=== PATIENT | female | born 1950 | race Caucasian/White ===

== ENCOUNTER 2018-07-09 21:31 | Inpatient (IN) | payer MEDICARE, OTHER ==
[~2018-07-09] VITALS: Ht 170.2 cm; Wt 91.2 kg
[2018-07-09 20:49] VITALS: BP 130/70
--- NOTE | 2018-07-09 20:49 | NUR ---
GPS/RN-NOTES ADMITTED A [age] YEARS OLD FEMALE PATIENT FROM [facility] FOR REHAB MEDICINE. PATIENT ON 5150 FOR GD. PATIENT ARRIVED ON THIS UNIT AT 0320 VIA STRETCHER WITH 2 [employer] CREW. PER HOLD PATIENT CONSTANTLY PRESENTS HERSELF TO ER AND DIALED 911 MULTIPLE TIMES REQUESTING/ DEMANDING TO " WELCOME BABIES", PT APPEARS PARANOID OF OTHERS, DELAYED WITH RESPONSES AND UNABLE TO BE REDIRECTED. UPON FACE TO FACE ASSESSMENT PATIENT IS SITTING UP IN BED, AWAKE, HAS NO S/S OR COMPLAINTS OF PAIN AT THIS TIME. PATIENT WITH NO DISTRESS, NOR SOB AT THIS TIME. RESPIRATION IS EVEN AND UNLABORED. PATIENT IS A/O X 2-3, VERBALLY RESPONSIVE. PATIENT IS NOTED TO BE DISORGANIZED, WITH EPISODES OF BEING ANXIOUS, UNCOOPERATIVE, AND NEEDS REDIRECTION. PATIENT DENIES SUICIDE IDEATIONS AND HOMICIDAL IDEATIONS AT THIS TIME. PT IS AMBULATORY. PATIENT IS UNDER THE PSYCHIATRIC CARE OF DR. ARAYA AND THE MEDICAL CARE OF DR KHALIL. PATIENT BELONGINGS WERE INVENTORIED AND CHECKED FOR CONTRABAND. SOME OF PT'S BELONGINGS SEALED AND PLACED TO SAFE GIVEN TO THE NURSING PROTOTYPE SPECIAL BUILD. SKIN ASSESSMENT DONE. PATIENT EDUCATED ON THE USE OF THE CALL KRISHNAN, VERBALIZED UNDERSTANDING. ALL NEEDS ATTENDED AND MET. KEPT COMFORTABLE. SAFETY PRECAUTIONS OBSERVED. WILL CONTINUE TO MONITOR CLOSELY. Addendum: 07/15/18 at 0318 by JUAN CARLOS CORRIGAN RN PT'S AGE 73 YRS OLD Addendum: 07/15/18 at 0330 by JUAN CARLOS CORRIGAN RN PT ARRIVED ON THIS UNIT AT 2048 ON 07/09/18
[2018-07-09 20:50] VITALS: BP 130/70
[2018-07-09] MEDS ORDERED: LORAZEPAM 0.5 MG TABLET PO PRN (22:00)
[2018-07-09] MEDS ORDERED: MAGNESIUM HYDROXIDE 30 ML UDC PO PRN (22:00)
[2018-07-09] MEDS ORDERED: ZOLPIDEM TARTRATE 5 MG TABLET PO PRN (22:00)
[2018-07-09] MEDS ORDERED: MAG HYDROX/AL HYDROX/SIMETH 30 ML UDC PO PRN (22:00)
[2018-07-09] MEDS ORDERED: ACET1TAB23 PO (22:46)
[2018-07-10 08:00] VITALS: BP 120/72
[2018-07-10] MEDS: ACETAMINOPHEN 325 MG TABLET PO PRN (08:33)
--- NOTE | 2018-07-10 15:35 | NUR ---
DR. WALTERS MADE AWARE OF THE CONSULT.
[2018-07-10 16:00] VITALS: BP 128/75
[2018-07-10] MEDS: risperiDONE-M 0.5 MG TAB.RAPDIS PO SCH (17:00)
--- NOTE | 2018-07-10 17:13 | NUR ---
Pt. refused to take Risperdal M, offered 3x and explained on the importance and pt. still refusing. Pt. said "I don't need pills".
[2018-07-10 20:00] VITALS: BP 152/94
[2018-07-11 08:00] VITALS: BP 141/95
[2018-07-11] MEDS: risperiDONE-M 0.5 MG TAB.RAPDIS PO SCH ×2 (08:37→17:22)
--- NOTE | 2018-07-11 08:37 | NUR ---
RN NOTES PATIENT REFUSED SCHEDULED MEDICATION OFFERED X3 BUT STILL REFUSED PATIENT STATE "I AM GOING HOME I DO NOT NEEDED". V/S STABLE, NEEDS ATTENDED AND ANTICIPATED, CONTINUED MONITORING.
[2018-07-11 08:50] VITALS: BP 141/95
[2018-07-11] MEDS ORDERED: OLANZAPINE 10 MG VIAL IM ONE (11:30)
--- NOTE | 2018-07-11 11:50 | NUR ---
rn notes patient was argumentative, irritable, yelling, refused taken scheduled medication, ashley to follow direction. per dr Rodarte prescribed Zyprexa 5 mg/ml im x now.
--- NOTE | 2018-07-11 11:55 | NUR ---
rn notes' administered Zyprexa 5 mg/ml im right outer gluteal area, called help 2 MERCHANDISE DIRECTOR's, and information security analyst. per dr Rodarte order, continued monitoring.
[2018-07-11 16:00] VITALS: BP 120/91
[2018-07-11 20:00] VITALS: BP 129/89
[2018-07-12] MEDS: ACETAMINOPHEN 325 MG TABLET PO PRN ×2 (04:33→23:37)
[2018-07-12 08:00] VITALS: BP 133/95
[2018-07-12] MEDS: risperiDONE-M 0.5 MG TAB.RAPDIS PO SCH ×2 (10:08→16:25)
--- NOTE | 2018-07-12 12:10 | NUR ---
SW received a phone call from asad Gage with [facility] Mobile Crisis Team [phone] requesting discharge date to arrange transportation for pt.
--- NOTE | 2018-07-12 12:44 | NUR ---
INITIAL DISCHARGE PLAN: Patient wishes to be discharged home to [facility] [place], [address]. Pt stated she did not want any referrals to mental health services and stated she did not want family/friends to be contacted. CONNIE will help form a safe and proper discharge in collaboration with pt, MD, and [facility].
[2018-07-12 16:00] VITALS: BP 122/79
--- NOTE | 2018-07-12 18:42 | NUR ---
GPS/RN-NOTES PATIENT REFUSED TO GIVE URINE SPECIMEN THIS SHIFT. DESPITE EXPLANATION RISK AND BENEFITS. PATIENT KEEPS POSTPONING .WILL ENDORSE TO INCOMING NURSE FOR FOLLOW UP AND CONTINUITY OF CARE.
[2018-07-12 20:40] VITALS: BP 113/70
[2018-07-13 07:29] LABS: BASOPHILS % (AUTO) 0.9 % (0.0-2.0); EOSINOPHILS % (AUTO) 4.6 % (0.0-6.0); HEMATOCRIT 35 % (33-45); HEMOGLOBIN 11.6 g/dL (11.5-14.8); LYMPHOCYTES # (AUTO) 1.6 /CMM (0.8-4.8); MEAN CORPUSCULAR HGB CONC 33 g/dl (31.0-36.0); MEAN CORPUSCULAR VOLUME 98 fL (82-100); MONOCYTES # (AUTO) 0.3 /CMM (0.1-1.30); MONOCYTES % (AUTO) 8.9 % (2.0-12.0); NEUTROPHILS # (AUTO) 1.8 /CMM (1.8-8.9); NEUTROPHILS % (AUTO) 45.6 % (43.0-81.0); PLATELET COUNT (AUTO) 130 /CMM (150-450); RDW COEFFICIENT OF VARIATION 13.3 (11.5-15.0); RED BLOOD CELL COUNT(AUTO) 3.55 MIL/uL (4.0-5.2); WHITE BLOOD COUNT (AUTO) 3.9 K/uL (4.3-11.0)
[2018-07-13 07:46] LABS: CALCIUM, SERUM 9.5 mg/dL (8.5-10.1); CREATININE 0.8 mg/dL (0.6-1.3); PHOSPHORUS 3.3 mg/dL (2.5-4.9); POTASSIUM 3.9 mmol/L (3.5-5.1)
[2018-07-13 08:00] VITALS: BP 150/97
[2018-07-13] MEDS: risperiDONE-M 0.5 MG TAB.RAPDIS PO SCH ×2 (09:18→16:22)
[2018-07-13 16:00] VITALS: BP 107/61
[2018-07-13 18:03] LABS: APPEARANCE,URINE TURBID (CLEAR); BILIRUBIN,URINE NEGATIVE (NEGATIVE); BLOOD, URINE NEGATIVE Ery/uL (NEGATIVE); COLOR,URINE YELLOW (YELLOW); KETONES,URINE NEGATIVE (NEGATIVE); LEUKOCYTE ESTERASE ,URINE NEGATIVE (NEGATIVE); NITRITE, URINE NEGATIVE (NEGATIVE); PH,URINE 5.5 (5.0-8.0); PROTEIN,URINE NEGATIVE (NEGATIVE); UGLUCOSE NEGATIVE (NEGATIVE); UROBILINOGEN,URINE 0.2 EU/dL (0.2)
[2018-07-13 18:12] LABS: BACTERIA,URINE 4+ /HPF (None Seen); RBC,URINE 0-2 /HPF (0-2); SQUAMOUS EPITHELIAL CELL,UR Rare /HPF (None Seen); WBC,URINE 0-2 /HPF (0-3)
[2018-07-13 21:14] VITALS: BP 118/78
--- NOTE | 2018-07-14 05:55 | NUR ---
GPS-RN REPORTED TO STEWARD/STEWARDESS ROOM BOLDEN LAB RESULT OF WBC 3.9, URINE CULTURE STILL PENDING. PATIENT IS AFEBRILE, V/S STABLE. WITH NO NEW ORDER GIVEN AT THIS TIME.
[2018-07-14 08:00] VITALS: BP 115/61
[2018-07-14] MEDS: ACETAMINOPHEN 325 MG TABLET PO PRN (08:44)
[2018-07-14] MEDS: risperiDONE-M 0.5 MG TAB.RAPDIS PO SCH ×2 (08:44→18:07)
--- NOTE | 2018-07-14 10:08 | NUR ---
SW received a phone call from Trever Engel LCSW at [address] [phone] to schedule a follow up appointment for pt on 07/23/18 at 10:00am.
[2018-07-14 16:17] VITALS: BP 141/76
--- NOTE | 2018-07-14 18:15 | NUR ---
verbalized anxious to go home.
[2018-07-14 20:42] VITALS: BP 135/73
[2018-07-15] MEDS: risperiDONE-M 0.5 MG TAB.RAPDIS PO SCH (08:09)
--- NOTE | 2018-07-15 08:30 | NUR ---
DR. ARAYA GAVE AN ORDER TO D/C HOLD AND D/C TODAY AND TO FOLLOW UP WITH PSYCH AND MEDICAL DOCTORS. DR. MCKEON MADE AWARE OF THE DISCHARGE AND MEDICALLY CLEARED FOR DISCHARGE.
[2018-07-15 08:39] VITALS: BP 120/80
[2018-07-15 10:40] VITALS: BP 134/79
--- NOTE | 2018-07-15 11:10 | NUR ---
pt discharge today by Dr. Rodarte. Intenist agrees with discharge plan. pt is alert oriented x 3 and ambulatory. pt is calm and cooperative. no acute distress noted. denies s/i and/or h/i at time of discharge. vital sign stable. med prescription given. refused skin assessment. belongings returned. exitcare instruction completed. pt going home. [facility]. pt left in stable condition.
--- NOTE | 2018-07-15 13:48 | NUR ---
DISCHARGE NOTE: Pt was discharged at 11:00am via [facility] (provided by [facility]) home to [address] [place], [address]. Pt has no family to notify. Pts mood was anxious with congruent affect. Pt denied visual/auditory hallucinations and denied suicidal/homicidal ideations. Pt has a follow up appointment with Trever Engel LCSW at [facility] [address] [place], [place] [phone] on 07/23/18 @ 10:00am. Pt will also been seen by the [facility] psychiatrist once she meets for individual therapy. Pt will also schedule a follow up appointment with Highway Administrative Engineer: Dr. Lucas Yanez [address] [place] [address] [phone]. The multidisciplinary exit care form was done, printed, signed, and given to the patient.
== END 2018-07-15 11:05 | disposition home or self-care (01) | DRG 885 ==
LOC: GPS 21:31
PROVIDERS: ADMIT Psychiatry & Neurology Psychiatry
DX: F29 Unspecified psychosis not due to a substance or known physiological condition (principal); D68.59 Other primary thrombophilia; E66.01 Morbid (severe) obesity due to excess calories; Z68.31 Body mass index [BMI] 31.0-31.9, adult; E86.0 Dehydration; F22 Delusional disorders; F20.9 Schizophrenia, unspecified
CPT/HCPCS: 36415; 80048-TC; 80305; 81000-TC; 83735-TC; 84100-TC; 85025-TC; 87081-TC; 87086-TC; J3490

== ENCOUNTER 2018-10-31 14:11 | Inpatient (IN) | payer MEDICARE, OTHER ==
[~2018-10-31] VITALS: Ht 165.1 cm; Wt 110.2 kg
[~2018-10-31 14:11] MED LIST: ACET1TAB23 PO
[2018-10-31] MEDS ORDERED: MAG HYDROX/AL HYDROX/SIMETH 30 ML UDC PO PRN (17:00)
[2018-10-31] MEDS ORDERED: MAGNESIUM HYDROXIDE 30 ML UDC PO PRN (17:00)
[2018-10-31] MEDS ORDERED: TEMAZEPAM 7.5 MG CAPSULE PO PRN (17:00)
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
--- NOTE | 2018-10-31 18:50 | NUR ---
17:10 :PATIENT REFUSED SKIN ASSESSMENT .
[2018-10-31 20:00] VITALS: BP 121/83
[2018-11-01 07:26] LABS: ALBUMIN 3.4 g/dL (3.4-5.0); BILIRUBIN,TOTAL 0.5 mg/dL (0.2-1.0); CALCIUM, SERUM 9.8 mg/dL (8.5-10.1); CREATININE 0.7 mg/dL (0.6-1.3); POTASSIUM 3.7 mmol/L (3.5-5.1); TOTAL PROTEIN, SERUM 6.6 g/dL (6.4-8.2)
[2018-11-01 08:00] VITALS: BP 118/70
--- NOTE | 2018-11-01 08:35 | NUR ---
PATIENT REFUSED MRSA SWAB AT THIS TIME
[2018-11-01 16:00] VITALS: BP 100/67
[2018-11-01] MEDS: risperiDONE-M 0.5 MG TAB.RAPDIS PO SCH (21:00)
--- NOTE | 2018-11-01 22:00 | NUR ---
GPS RN NOTES, PATIENT REFUSED RISPERIDONE SCHEDULED MED, EDUCATED ABOUT RISKS AND BENEFITS TO TAKE MEDICATION X3, STILL REFUSED, WILL CONTINUE TO MONITOR CLOSELY.
[2018-11-02 08:00] VITALS: BP_SYST 118; BP_SYST 152; BP_DIAS 70; BP_DIAS 97
--- NOTE | 2018-11-02 08:01 | NUR ---
paula notes received pt in her bakari having breakfast; no issues noted at this time. will monitor
[2018-11-02] MEDS: risperiDONE-M 0.5 MG TAB.RAPDIS PO SCH ×2 (09:14→21:00)
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
[2018-11-02] MEDS: ACETAMINOPHEN 325 MG TABLET PO PRN (11:23)
[2018-11-02] MEDS: LORAZEPAM 0.5 MG TABLET PO PRN ×2 (11:23→12:36)
--- NOTE | 2018-11-02 12:24 | NUR ---
INITIAL DISCHARGE PLAN: Patient wishes to be discharged home to [address] [place] [address]. However, pts son Zhen [phone] wishes for pt to be discharged to a SNF in [place]. CONNIE will help form a safe and proper discharge in collaboration with .
--- NOTE | 2018-11-02 12:37 | NUR ---
rn notes pt changed her mind and refused to take her requested ativan and tylenol, refused meds returned to bin as witnessed by another RN.pt with episodes of screaming/agitation. requested for naproxen. everything relayed to Terry/LIFE INSURANCE SPECIALIST; pt seen and assessed
[2018-11-02] MEDS ORDERED: OLANZAPINE 10 MG VIAL IM STA (12:45)
--- NOTE | 2018-11-02 13:25 | NUR ---
rn notes pt noted with extreme agitation, with episodes of screaming and assaultive behavior.MD notified by lithopone charger Yasmin with orders given. meds explained to the pt and pt voluntarily agreed to received zyprexa 10 mg intramuscular as ordered with no physical hold needed.
[2018-11-02 16:00] VITALS: BP 125/68
[2018-11-02 19:51] LABS: APPEARANCE,URINE SL CLOUDY (CLEAR); BILIRUBIN,URINE NEGATIVE (NEGATIVE); BLOOD, URINE TRACE Ery/uL (NEGATIVE); COLOR,URINE YELLOW (YELLOW); KETONES,URINE NEGATIVE (NEGATIVE); LEUKOCYTE ESTERASE ,URINE TRACE (NEGATIVE); NITRITE, URINE NEGATIVE (NEGATIVE); PH,URINE 5.5 (5.0-8.0); PROTEIN,URINE NEGATIVE (NEGATIVE); UGLUCOSE NEGATIVE (NEGATIVE); UROBILINOGEN,URINE 0.2 EU/dL (0.2)
[2018-11-02 20:28] VITALS: BP 132/71
--- NOTE | 2018-11-02 21:15 | NUR ---
GPS RN NOTES, PATIENT REFUSED RISPERIDONE SCHEDULED MED, EXPLAINED RISKS AND BENEFITS TO TAKE MEDICATION X3, STILL REFUSED, WILL CONTINUE TO MONITOR .
--- NOTE | 2018-11-02 21:30 | NUR ---
GPS RN NOTES, PATIENT REFUSED RISPERIDONE 2 MG PO SCHEDULED MED, EXPLAINED RISKS AND BENEFITS TO TAKE MEDICATION X3, STILL REFUSED, WILL CONTINUE TO MONITOR .
[2018-11-02 21:36] LABS: BACTERIA,URINE Rare /HPF (None Seen); RBC,URINE 0-2 /HPF (0-2); SQUAMOUS EPITHELIAL CELL,UR Few /HPF (None Seen)
[2018-11-03 08:00] VITALS: BP 136/89
[2018-11-03] MEDS: risperiDONE-M 0.5 MG TAB.RAPDIS PO SCH ×2 (09:05→21:00)
[2018-11-03 16:00] VITALS: BP 138/90
[2018-11-03 20:32] VITALS: BP 137/94
--- NOTE | 2018-11-03 21:14 | NUR ---
GPS RN NOTES: PATIENT REFUSED RISPERDAL SCHEDULED MED, DESPITE EDUCATION OFFERED X3, STILL REFUSED, WILL CONTINUE TO MONITOR .
[2018-11-04 08:00] VITALS: BP 146/93
[2018-11-04] MEDS: risperiDONE-M 0.5 MG TAB.RAPDIS PO SCH ×2 (09:49→21:00)
[2018-11-04] MEDS: ACETAMINOPHEN 325 MG TABLET PO PRN ×2 (09:49→15:27)
--- NOTE | 2018-11-04 12:03 | NUR ---
0800 ASSUMED CARE OF PATIENT. PATIENT ALERT AND ORIENTED TIMES 2-3. PATIENT DENIES SI AND HI AT THIS TIME. PATIENT PACING HALLS. PATIENT DEMANDING CODEINE. PATIENT SIGNING NATIONAL ANTHEM LOUDLY REPEATEDLY. PATIENTS VITALS STABLE. PATIENT DENIES PAIN AT THIS TIME. 0900 PATIENT MEDICATION COMPLIANT WITH MUCH COERCING. PATIENT HAVING LOUD OUTBURST AT TIMES. 1015 PATIENT IN DAY ROOM PARTICIPATING IN GROUPS. NO BEHAVIORAL PROBLEMS NOTED. PATIENT GIVEN TYLENOL 650MG PO PER DR ORDERS FOR PAIN 5/10 GENERALIZED. 1130 PATIENT IN DAY ROOM INTERACTING WITH PEERS. PATIENT HAVING OCCASIONAL LOUD OUTBURST AND PACING HALLS. NO PRNS NEEDED. PATIENT DENIES PAIN AT THIS TIME. WILL CONTINUE TO MONITOR THROUGHOUT SHIFT.
[2018-11-04 16:04] VITALS: BP 111/59
--- NOTE | 2018-11-04 18:11 | NUR ---
1800 PATIENT IN DAY ROOM CALM AND COOPERATIVE AT THIS TIME. PATIENT PACING IN HALLS WITH LOUD OUTBURST ABOUT CODEINE AND SINGING LOUDLY NATIONAL ANTHEM THROUGHOUT SHIFT. PATIENT DENIES SI AND HI THROUGHOUT SHIFT. PATIENT VITALS STABLE. PATIENT GIVEN TYLENOL AT 1000 AND AT 1600 FOR PAIN GENERALIZED 5/10. PATIENT ASKED FOR TYLENOL AND THEN NEED ENCOURAGEMENT TO TAKE DEMANDS THAT SHE TAKES CODEINE BUT THEN TAKES TYLENOL. PATIENT EASILY REDIRECTED BUT CONFUSED. PATIENT PACING HALLS OFTEN THROUGHOUT SHIFT. WILL ENDORSE TO HS RN. VICENTE ISSA RN
[2018-11-04 20:00] VITALS: BP 128/99
--- NOTE | 2018-11-04 21:32 | NUR ---
GPS/JUNIOR GRAPHIC DESIGNER NOTES: PT. REFUSED HS MEDS. OFFERED 3X. EXPLAINED RISK AND BENEFITS. PT. STILL REFUSED.
[2018-11-05] MEDS: ACETAMINOPHEN 325 MG TABLET PO PRN (07:17)
[2018-11-05 08:00] VITALS: BP 115/40
[2018-11-05] MEDS: risperiDONE-M 0.5 MG TAB.RAPDIS PO SCH ×3 (08:25→21:00)
[2018-11-05] MEDS ORDERED: OLANZAPINE 10 MG VIAL IM ONE (09:00)
--- NOTE | 2018-11-05 09:01 | NUR ---
PT. IS HIGHLY AGITATED, AGGRESSIVE, SCREAMING AND YELLING, DELUSIONAL, THREATENING THE STAFFS AND PSYCHIATRIST . PT. WAS REDIRECTED TO CALM DOWN AND PROVIDED WITH COMFORT AND PT. NOT FOLLOWING REDIRECTION. DR. ARAYA IN THE UNIT AND ORDERED ZYPREXA AND 10 MG IM. Addendum: 11/05/18 at 1020 by ZOHREH GARCIA RN TO FOLLOW ING DIRECTION Addendum: 11/05/18 at 1024 by ZOHREH GARCIA RN NOT FOLLOWING DIRECTION
--- NOTE | 2018-11-05 13:26 | NUR ---
SW received a voicemail from pts sister Martha Esposito [phone], stating she is pts DPOA and also expressed concern regarding pts discharge home. SW returned the call and left a voicemail for callback and requested DPOA documentation.
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
--- NOTE | 2018-11-05 15:43 | NUR ---
GPS/RN PATIENT REFUSED LABS OFFERED X 3 WITH RISKS AND BENEFITS EXPLAINED STILL CONTINUE TO REFUSE. WILL NOTIFY .
[2018-11-05 16:00] VITALS: BP 129/93
--- NOTE | 2018-11-05 17:20 | NUR ---
GPS/RN PATIENT REFUSED DINNER. OFFERED X 3 STILL CONTINUE TO REFUSE, PER PATIENT, THE FOOD IS CONTAMINATED AND ONLY WANTS TO EAT ICE CREAM FOR DINNER.
[2018-11-05 20:00] VITALS: BP 129/76
--- NOTE | 2018-11-05 21:35 | NUR ---
GPS RN NOTE: PATIENT REFUSED RISPERDAL, EXPLAINED THE RISK AND BENEFITS X 3, PATIENT STILL REFUSED. WILL CONTINUE TO MONITOR [id number] FOR SAFETY
[2018-11-06 08:00] VITALS: BP 119/97
[2018-11-06] MEDS: risperiDONE-M 0.5 MG TAB.RAPDIS PO SCH ×2 (09:00→21:00)
--- NOTE | 2018-11-06 09:18 | NUR ---
GPS/RN-NOTES PATIENT REFUSED RISPERDAL 3MG P.O STATED" I TAKE ANY MEDICATIONS, I DON'T NEED IT". OFFERED X3 BUT PATIENT STILL REFUSED. CHARGE NURSE AWARE. Addendum: 11/06/18 at 1702 by BARBIE WLIL RN CORRECTIONS ON MY ABOVE NOTES EARLIER PATIENT STATED" I DON'T TAKE ANY MEDICATIONS".
--- NOTE | 2018-11-06 10:04 | NUR ---
GPS/RN-NOTES NOTED PATIENT WITH OUTBURST OF SCREAMING AND YELLING WITH THE STAFF IN THE DAY ROOM. REDIRECTED AND REORIENTED PATIENT AND PATIENT CALM DOWN AND APOLOGIZE TO THE STAFF.PATIENT STATED" I'M SORRY FOR MY OUTBURST, IT'S JUST ON MY MINE". ALL NEEDS ATTENDED AND ANTICIPATED. WILL CONT. MONITORING Q15 MINS. FOR SAFETY AND BEHAVIOR.
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
[2018-11-06] MEDS ORDERED: OLANZAPINE 10 MG VIAL IM ONE ×2 (12:00→17:30)
--- NOTE | 2018-11-06 12:55 | NUR ---
GPS/RN-NOTES PATIENT SLEEPING IN THE BED,NO ACUTE DISTRESS NOTED.
[2018-11-06 16:00] VITALS: BP 124/87
--- NOTE | 2018-11-06 17:04 | NUR ---
GPS/RN-NOTES NOTED PATIENT WITH OUTBURST OF SCREAMING AND YELLING "CALL THE POLICE,CALL THE POLICE" SEVERAL TIMES IN HER ROOM . AIRCONDITIONING ENGINEER AND CHARGE NURSE REDIRECTED AND REORIENTED PATIENT BUT PATIENT ACCUSING THE STAFF THAT WE LOCK HER IN THE HOSPITAL.DR. LOCKE MADE AWARE OF THE BEHAVIOR WITH T.O ORDER OF ZYPREXA 10MG IM X1, NOTED AND CARRIED OUT. ALL NEEDS ATTENDED AND ANTICIPATED. WILL CONT. MONITORING Q15 MINS. FOR SAFETY AND BEHAVIOR. Addendum: 11/06/18 at 1710 by BARBIE WILL RN PATIENT IS HIGHLY AGITATED AND NOT FOLLOWING DIRECTIONS.
--- NOTE | 2018-11-06 18:30 | NUR ---
GPS/RN-NOTES PATIENT IN THE DAY ROOM SITTING IN THE CHAIR ,CALM,NO ACUTE DISTRESS NOTED.
--- NOTE | 2018-11-06 19:30 | NUR ---
GPS RN NOTE, RECEIVED PATIENT AWAKE AND IN BED NO S/S OR COMPLAINTS OF PAIN AT THIS TIME. PATIENT IS DISPLAYING NO S/S OF APPARENT DISTRESS AT THIS TIME. PATIENT BREATHING IS UNLABORED WITH EQUAL RISE AND FALL OF THE CHEST. PATIENT IS ALERT AND ORIENTED X 1-2 ON ROOM AIR WITH A SPO2 0F 95%. PATIENT IS MED SELECTIVE, DISORGANIZED, DELUSIONAL, UNCOOPERATIVE, CONFUSED AT TIME, AND NEEDS REORIENTATION. PATIENT DENIES SUICIDE AND HOMICIDAL IDEATIONS AT THIS TIME. PATIENT ASSISTED WITH TURNING AND REPOSITIONING Q2HR AND PRN FOR COMFORT AND CIRCULATION. PATIENT HAS NO NEEDS AT THIS TIME. PATIENT EDUCATED ON THE USE OF THE CALL KRISHNAN. PATIENT BED SIDE RAILS ARE UP X 2 FOR SAFETY, BED IS LOCKED AND LOW. WILL CONTINUE TO MONITOR AND MAINTAIN SAFETY Q15 MIN WITH THE HELP OF STAFF.
[2018-11-06 20:00] VITALS: BP 143/92
--- NOTE | 2018-11-06 20:43 | NUR ---
GPS RN NOTE, PATIENT HAS A COMPLAINT OF CONSTIPATION AND IS REQUESTING MILK OF MAGNESIA AT THIS TIME. PATIENT VITAL SIGNS ARE STABLE. GAVE MILK OF MAGNESIA 30ML 1 UNIT DOSE PO Q12HR PRN ORDERED. WILL REASSESS FOR CONSTIPATION AND I WILL CONTINUE TO MONITOR THIS PATIENT.
--- NOTE | 2018-11-06 21:23 | NUR ---
GPS RN NOTE, PATIENT REFUSED TO TAKE RISPERDAL-M 3MG PO. OFFERED RISPERDAL 3 TIMES AND STILL PATIENT REFUSED STATING, " I HAD A HARD DAYS NIGHT THANKS ". EDUCATED PATIENT ON THE RISKS AND BENEFITS OF TAKING AND REFUSING RISPERDAL. WILL CONTINUE TO MONITOR THIS PATIENT.
[2018-11-06] MEDS: ACETAMINOPHEN 325 MG TABLET PO PRN (21:58)
--- NOTE | 2018-11-06 21:58 | NUR ---
GPS RN NOTE, PATIENT HAS A COMPLAINT OF GENERALIZED PAIN AT 3 OUT 10 ON THE PAIN SCALE AND IS REQUESTING TYLENOL AT THIS TIME. PATIENT VITAL SIGNS ARE STABLE. GAVE TYLENOL 650MG PO Q6HR PRN ORDERED. WILL REASSESS PAIN AND I WILL CONTINUE TO MONITOR THIS PATIENT.
[2018-11-07 08:00] VITALS: BP 131/46
[2018-11-07] MEDS: risperiDONE-M 0.5 MG TAB.RAPDIS PO SCH ×2 (08:58→21:00)
--- NOTE | 2018-11-07 09:00 | NUR ---
RN NOTES PATIENT REFUSED SCHEDULED MEDICATION. PROMPTED X3 BUT STILL REFUSED, EXPLAINED IMPORTANT OF MEDICATION INTAKE. PATIENT STATE " I AM NOT HAVE A PROBLEM " ALSO PATIENT NOTES I NEED A SHOT. SAFETY PRECAUTION MAINTAINED ALL THE TIME.
--- NOTE | 2018-11-07 11:40 | NUR ---
RN NOTES PATIENT VERY ANXIOUS, PARANOID, YELLING, DELUSIONAL, HARD TO FOLLOW DIRECTION, REFUSED SCHEDULED MEDICATION. GET VERBAL ORDER PER DR CHUCKY AlejandreYPREXA 10MG/ML IM, AND ATIVAN 1 MG/ML IM. ORDER TAKEN AND CARRIED OUT.
[2018-11-07] MEDS ORDERED: LORAZEPAM INJ 2 MG/ML VIAL IM ONE (12:00)
[2018-11-07] MEDS ORDERED: OLANZAPINE 10 MG VIAL IM ONE (12:00)
--- NOTE | 2018-11-07 12:07 | NUR ---
RN NOTES ADMINISTERED ATIVAN 1 MG/ML IM, AND ZYPREXA 10 MG/ML IM LEFT OUTER GLUTEAL AREA, WITH HELP OF COP'S, AND RN CORRIE. PATIENT REFUSED V/S TO BE TAKEN, SAFETY PRECAUTION MAINTAINED ALL T THE TIME. CONTINUED MONITORING.
--- NOTE | 2018-11-07 15:45 | NUR ---
RN NOTES FOUND PATIENT IN THE BATHROOM FLOOR. SKIN ASSESSMENT DONE, SKIN INTACT, V/S TAKEN STABLE BP-129/69, P-76, R-18, T-98.4, PATIENT HAS NO COMPLAINING OF PAIN, OR RESPIRATORY DISTRESS, NO INJURIES. ASSIST PATIENT BACK TO THE BED. NOTIFIED CHARGE NURSE, GEOLOGY ASSOCIATE, AND WILFRID GUERRA DNP, CONTINUED MONITORING.
[2018-11-07 16:00] VITALS: BP 129/69
--- NOTE | 2018-11-07 16:26 | NUR ---
RN NOTES RECEIVED CALL BACK FROM WILFRID GUERRA NOTIFIED PATIENT FOUND IN THE BATHROOM FLOOR, PATIENT HAS NO COMPLAINING OF PAIN OF INJURES. PER WILFRID GUERRA MONITOR PATIENT. ORDER TAKEN AND CARRIED OUT.
[2018-11-07 20:20] VITALS: BP 145/71
--- NOTE | 2018-11-07 22:10 | NUR ---
GPS RN NOTE: PATIENT REFUSED PM MEDS, REFUSED PICTURES, EXPLAINED THE RISK AND BENEFITS X 3 ATTEMPTS BUT PATIENT STILL REFUSED, WILL CONTINUE TO MONITOR [id number] FOR SAFETY
[2018-11-08 08:00] VITALS: BP 128/70
[2018-11-08] MEDS: risperiDONE-M 0.5 MG TAB.RAPDIS PO SCH ×2 (08:24→21:21)
--- NOTE | 2018-11-08 12:31 | NUR ---
SW faxed referral to Maxine, warranty coordinator at [facility] Address: [address] [place] [address] , Stephy, warranty coordinator at [facility] Address: [address] [place] [address] , Jennifer, warranty coordinator at [facility] Address: [address] [place] [address] , and Genia warranty coordinator at [facility] Address: [address] [place] [address] for review.
[2018-11-08 16:00] VITALS: BP 119/83
[2018-11-08 20:00] VITALS: BP 112/77
[2018-11-09 08:00] VITALS: BP 150/82
[2018-11-09] MEDS: risperiDONE-M 0.5 MG TAB.RAPDIS PO SCH ×2 (09:06→20:49)
[2018-11-09] MEDS: ACETAMINOPHEN 325 MG TABLET PO PRN (09:58)
--- NOTE | 2018-11-09 11:05 | NUR ---
SW contacted Maxine, reconciliation coordinator at [facility] Address: [address] [place] [address] , Jennifer, reconciliation coordinator at [facility] Address: [address] [place] [address] , and Genia reconciliation coordinator at [facility] Address: [address] [place] [address] for a status on referral sent yesterday. All facilities stated that they are unable to accommodate pts psychiatric needs.
--- NOTE | 2018-11-09 11:23 | NUR ---
SW contacted pts sister Martha Gibson [phone] and left a voicemail for callback.
--- NOTE | 2018-11-09 12:53 | NUR ---
CONNIE received a phone call from pts sister Martha Gibson [phone] and SW informed her that all the SNF's in [place] denied pts referral as they are unable to meet pts psychiatric needs. Martha stated she strongly opposes for pt to be discharged home and she wants pt to be discharged to a SNF. CONNIE informed her that she would be able to refer pt to a local SNF. Martha agreed and CONNIE will inform her as soon as placement is identified.
--- NOTE | 2018-11-09 13:14 | NUR ---
CONNIE faxed SNF referral to Donald, cataloging assistant of [facility] Address: [address] [place] [address] and [facility] Address: [address] [place] [address] for review.
[2018-11-09 16:00] VITALS: BP 146/88
[2018-11-09 20:14] VITALS: BP 124/77
[2018-11-10 08:00] VITALS: BP 134/95
[2018-11-10] MEDS: risperiDONE-M 0.5 MG TAB.RAPDIS PO SCH ×2 (08:17→21:00)
[2018-11-10] MEDS: ACETAMINOPHEN 325 MG TABLET PO PRN (09:47)
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
--- NOTE | 2018-11-10 13:48 | NUR ---
CONNIE faxed SNF referral to Inga, vice president sales and marketing at [facility] Address: [address] [place] [address] for review.
--- NOTE | 2018-11-10 14:18 | NUR ---
GROUP NOTE: TOPIC "what are your goals once you are discharged from the hospital?" S: " I am looking forward to return to my life and be zachary. To resume my residence and watch TV, listen to music, and cook meals for myself. O: Pt was smiling in a euthymic mood with congruent affect. A: Pt gained awareness of mental illness and stated she needed to take care of herself. P: Pt will continue milieu treatment and medication stabilization.
[2018-11-10 16:00] VITALS: BP 128/73
[2018-11-10 20:04] VITALS: BP 117/69
--- NOTE | 2018-11-11 01:15 | NUR ---
GPS RN NOTE: PATIENT REFUSED RISPERDAL, EXPLAINED THE RISK AND BENEFITS X 3 ATTEMPTS, PATIENT STILL REFUSED. WILL CONTINUE TO MONITOR [id number] FOR SAFETY
[2018-11-11] MEDS: ACETAMINOPHEN 325 MG TABLET PO PRN ×2 (07:02→15:28)
[2018-11-11 08:00] VITALS: BP 114/65
[2018-11-11] MEDS: risperiDONE-M 0.5 MG TAB.RAPDIS PO SCH ×2 (08:56→21:10)
--- NOTE | 2018-11-11 11:12 | NUR ---
CONNIE contacted Kevin communications coordinator at [facility] Address: [address] [place] [address] who stated pt has been accepted to the facility.
--- NOTE | 2018-11-11 11:13 | NUR ---
CONNIE contacted Luis A Verma APS scial worker [phone] and left a voicemail for callback.
--- NOTE | 2018-11-11 11:17 | NUR ---
CONNIE contacted pts sister Martha Gibson [phone] to inform her pt has been accepted to [facility] and will be discharging tomorrow. Sister agreed with discharge plan.
[2018-11-11 16:00] VITALS: BP 132/75
--- NOTE | 2018-11-11 19:30 | NUR ---
GPS RN NOTE, RECEIVED PATIENT AWAKE AND IN BED NO S/S OR COMPLAINTS OF PAIN AT THIS TIME. PATIENT IS DISPLAYING NO S/S OF APPARENT DISTRESS AT THIS TIME. PATIENT BREATHING IS UNLABORED WITH EQUAL RISE AND FALL OF THE CHEST. PATIENT IS ALERT AND ORIENTED X 1-2 ON ROOM AIR WITH A SPO2 0F 95%. PATIENT IS MED SELECTIVE, DISORGANIZED, COOPERATIVE, CONFUSED AT TIME, AND NEEDS REORIENTATION. PATIENT DENIES SUICIDE AND HOMICIDAL IDEATIONS AT THIS TIME. PATIENT ASSISTED WITH TURNING AND REPOSITIONING Q2HR AND PRN FOR COMFORT AND CIRCULATION. PATIENT HAS NO NEEDS AT THIS TIME. PATIENT EDUCATED ON THE USE OF THE CALL KRISHNAN. PATIENT BED SIDE RAILS ARE UP X 2 FOR SAFETY, BED IS LOCKED AND LOW. WILL CONTINUE TO MONITOR AND MAINTAIN SAFETY Q15 MIN WITH THE HELP OF STAFF.
[2018-11-11 20:00] VITALS: BP 120/78
[2018-11-12] MEDS: ACETAMINOPHEN 325 MG TABLET PO PRN ×2 (04:16→09:23)
--- NOTE | 2018-11-12 04:16 | NUR ---
GPS RN NOTE, PATIENT HAS A COMPLAINT OF A HEADACHE AT 2 OUT 10 ON THE PAIN SCALE AND IS REQUESTING TYLENOL AT THIS TIME. PATIENT VITAL SIGNS ARE STABLE. GAVE TYLENOL 650 MG PO Q6HR PRN ORDERED. WILL REASSESS PAIN AND I WILL CONTINUE TO MONITOR THIS PATIENT.
[2018-11-12 08:00] VITALS: BP 118/69
--- NOTE | 2018-11-12 08:45 | NUR ---
/ MARSHAL GAVE AN ORDER TO D/C HOLD AND D/C TO [facility] AND TO FOLLOW UP WITH [facility].
[2018-11-12] MEDS: risperiDONE-M 0.5 MG TAB.RAPDIS PO SCH (08:55)
--- NOTE | 2018-11-12 09:25 | NUR ---
GPS/RN-NOTES PATIENT REQUESTING TYLENOL FOR HEADACHE, TYLENOL 650 MG P.O GIVEN PRN ORDER.
--- NOTE | 2018-11-12 10:25 | NUR ---
GPS/RN-NOTES PATIENT IN THE DAY ROOM,CALM NO ACUTE DISTRESS NOTED. ABLE TO AMBULATE USING WALKER WITHOUT ANY COMPLAIN OF DISCOMFORT.
--- NOTE | 2018-11-12 12:25 | NUR ---
GPS/RN-NOTES PATIENT DISCHARGE TO [facility] TODAY. DR. ARAYA AND DR. GAN AGREES WITH ORDERS. PATIENT DID NOT VERBALIZE SI/HI,DENIES VISUAL/AUDITORY HALLUCINATIONS AT THE TIME OF DISCHARGE . REPORT WAS GIVEN TO DORI ( FACILITY ADMITTING STAFF). PATIENT WAS RADIO ARTIST BY AMBULANCE VIA GURNEY WITH TWO STAFF ASSIST. PATIENT LEFT THE UNIT IN STABLE CONDITION USING WALKER ,NO ACUTE DISTRESS NOTED. PER SW PATIENT SISTER AMANDA AWARE OF THE DISCHARGE. PATIENT LEFT WITH ALL BELONGINGS INCLUDING X1 CELLPHONE.
--- NOTE | 2018-11-12 12:48 | NUR ---
DISCHARGE NOTE: Pt was discharged at 11:30am via [facility] ambulance trip #[id number] to [facility] Address: [address] [place] [address] . Pts Sister Martha [phone] has been notified and agreed with discharge plan. Pt will be under the care of Psychiatrist: Dr. Rodarte [id number] [address] [phone] and Partner: Dr. Quinn Baird [address] [place] [address] . . The multidisciplinary exitcare form was done, printed, signed, and given to the patient.
== END 2018-11-12 12:25 | DRG 885 ==
LOC: GPS 16:44
PROVIDERS: ADMIT Psychiatry & Neurology Psychiatry; ATTEND Psychiatry & Neurology Psychiatry
DX: F20.0 Paranoid schizophrenia (principal); Z68.41 Body mass index [BMI] 40.0-44.9, adult; Z73.6 Limitation of activities due to disability; F41.9 Anxiety disorder, unspecified; E66.01 Morbid (severe) obesity due to excess calories; Z91.14 Patient's other noncompliance with medication regimen; Z76.5 Malingerer [conscious simulation]
CPT/HCPCS: 36415; 80053-TC; 80061-TC; 81000-TC; J2060; J3490